=== PATIENT | female | born 1950 | race African-American/Black ===

== ENCOUNTER 2016-07-29 19:29 | Emergency (ER) | payer BC | END 2016-07-30 | disposition left against medical advice (07) | LOC: ER 19:29 | DX: Z53.21 Procedure and treatment not carried out due to patient leaving prior to being seen by health care provider (principal); R11.0 Nausea; R50.9 Fever, unspecified; R05 Cough; R03.0 Elevated blood-pressure reading, without diagnosis of hypertension; Z88.2 Allergy status to sulfonamides | CPT/HCPCS: 71020; 80048; 83735; 84484; 85025; 85610; 85730; 93005 ==